=== PATIENT | female | born 1960 | race Caucasian/White ===

== ENCOUNTER 2016-05-15 12:48 | Observation (INO) ==
[2016-05-15 17:41] LABS: Basophils # 0.1 K/mcL (0.0-0.2); Basophils % 0.7 %; Eosinophils # 0.1 K/mcL (0.0-0.6); Hematocrit 43.3 % (35.3-44.9); Hemoglobin 14.6 g/dL (11.5-15.4); Immature Granulocytes % 0.4 % (0-4); Lymphocytes # 2.3 K/mcL (0.6-4.6); Lymphocytes % 32.9 %; Mean Corpuscular HGB Conc 33.7 g/dL (31.6-35.5); Mean Corpuscular Hemoglobin 30.3 pg (28.0-33.3); Mean Corpuscular Volume 89.8 fL (83.0-100.0); Mean Platelet Volume 9.5 fL (9.4-12.4); Monocytes # 0.6 K/mcL (0.0-1.3); Monocytes % 8.2 %; Platelet Count 290 K/mcL (140-400); Red Blood Count 4.82 M/mcL (3.82-4.97); Red Cell Distribution Width 12.4 % (11.5-14.5); Segmented Neutrophils % 56.8 %
--- NOTE | 2016-05-15 17:45 | Emergency Department Note ---
Disposition Clinical Impression: Near syncope Chest pain Qualifiers: Chest pain type: unspecified Qualified Code(s): R07.9 - Chest pain, unspecified Disposition: Admitted As Inpatient Condition: Good Referrals: Agata Jain CNP [Primary Care Provider] - Forms: ED Satisfaction Letter Time of Disposition: 17:46 Chest Pain HPI - General Chief Complaint: ED Chest Pain Stated Complaint: Feels like passing out/clammy Time Seen by Provider: 05/15/16 17:30 Source: patient Limitations: no limitations Vital Signs Reviewed: Yes Nursing Notes Reviewed: Yes - History of Present Illness HPI Narrative: 56-year-old female who comes to emergency Department complaining of a numb feeling across her chest with some pain and some pain up into her jaw has had 3 episodes today. Got lightheaded and felt like she is going to pass out earlier today. No cardiac history. She does have history of hypertension and a family history. 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 Onset: during rest Pain Location: substernal, left chest Severity scale (1-10): 0 Quality: heaviness Pain Radiation: neck, jaw/teeth Improves with: nothing Worsens with: nothing - Related Data Home Medications Medication Instructions Recorded Confirmed [place] 5-325 Tablet 05/24/15 05/24/15 Requip Xl 05/24/15 Zyrtec 05/24/15 Klonopin 01/24/16 Lasix 01/24/16 01/24/16 Lexapro 01/24/16 Previous Rx's Medication Instructions Recorded MethylPREDNISolone [Medrol] 4 mg PO DAILY 6 Days 05/24/15 Azithromycin [Zithromax] 250 mg PO DAILY #6 tablet 01/24/16 Benzonatate [Tessalon] 200 mg PO TID PRN #30 capsule 01/24/16 GuaiFENesin ER [Mucinex] 1,200 mg PO BID #20 tbbp.12hr 01/24/16 Doxycycline 100 mg PO BID #14 capsule 02/06/16 GuaiFENesin ER [Mucinex] 600 mg PO BID #20 tbbp.12hr 02/06/16 Promethazine/Phenyleph/Codeine 5 ml PO Q6H PRN #120 ml 02/06/16 [Promethazine Vc-Codeine Syrup] Allergies Allergy/AdvReac Type Severity Reaction Status Date / Time cefdinir [From Omnicef] Allergy Rash Verified 01/24/16 15:01 Erythromycin Base Allergy See Verified 01/24/16 15:01 Comments NSAIDS (Non-Steroidal Allergy See Verified 01/24/16 15:01 Anti-Inflamma Comments Penicillins [PCN] Allergy Rash Verified 01/24/16 15:01 pramipexole [From Mirapex] Allergy Muscle Pain Verified 01/24/16 15:01 ropinirole [From Requip] Allergy Vomiting Verified 01/24/16 15:01 Sulfa (Sulfonamide Allergy Rash Verified 01/24/16 15:01 Antibiotics) Tizanidine [From Zanaflex] Allergy Muscle Pain Verified 01/24/16 15:01 Constitutional: Denies: fever, chills, weakness, weight change Eyes: Denies: eye pain, eye discharge, vision change ENT ED: Denies: ear pain, throat pain, dental pain, hearing loss, epistaxis, congestion, dysphagia Cardiovascular: Reports: chest pain. Denies: palpitations, dyspnea on exertion , edema, syncope Respiratory: Denies: cough, dyspnea, wheezes, hemoptysis, stridor Gastrointestinal: Denies: abdominal pain, nausea, vomiting, diarrhea, constipation, hematemesis, melena, hematochezia Genitourinary: Denies: dysuria, frequency, hematuria, discharge Musculoskeletal: Denies: back pain, neck pain, arthralgia, myalgia Integumentary: Denies: rash, abrasion, lesions Neurological: Denies: headache, weakness, numbness, paresthesias, confusion, abnormal gait, vertigo Psychiatric: Denies: anxiety, depression, suicidal thoughts, homicidal thoughts , auditory hallucinations, visual hallucinations Endocrine: Denies: fatigue Hematological/Lymphatic: Denies: easy bleeding, easy bruising Allergic/Immunologic: Denies: facial swelling, urticaria Chest Pain PMH - Past Medical History Medical history: Reports: hypertension - Social History Smoking Status: Never smoker Alcohol use: Reports: none Drug use: Reports: none Physical Exam - General Limitations: no limitations General appearance: alert - Head Head exam: atraumatic, normocephalic, normal inspection - Eye Eye exam: Present: normal appearance, PERRL, EOMI - ENT ENT exam: normal exam, normal oropharynx, mucous membranes moist - Neck Neck exam: Present: normal inspection, full ROM, trachea midline - Chest Chest inspection: Present: normal inspection, symmetric chest wall rise - Respiratory Respiratory exam: Present: normal lung sounds bilaterally - Cardiovascular Cardiovascular exam: Present: regular rate, normal rhythm, normal heart sounds - Abdominal Exam Abdominal exam: Present: soft, Non-Tender. Absent: tenderness, distention, guarding, rebound, rigidity - Extremities Exam Extremities exam: Present: normal inspection, full ROM. Absent: tenderness, pedal edema - Expanded Lower Extremity Exam Neurovascular/Tendon exam: Absent: motor deficit, sensory deficit, tendon deficit Gait: observed and normal - Back Exam Back exam: Present: normal inspection, full ROM. Absent: tenderness - Neurological Exam Neurological exam: Present: alert, oriented X3 - Psychiatric Psychiatric exam: Present: normal affect, normal mood - Skin Skin exam: Present: warm, dry, intact, normal color Course - Reevaluation(s) Reevaluation #1: Patient comes in with intermittent chest pain into her jaw. Had a near syncopal episode. Patient is not tachycardic. Time: 17:47 Vital Signs Temperature 98.3 F 05/15/16 13:56 Pulse Rate 75 05/15/16 13:56 Respiratory Rate 16 05/15/16 13:56 Blood Pressure 138/86 05/15/16 13:56 O2 Sat by Pulse Oximetry 94 L 05/15/16 13:56 Temperature 98.3 F 05/15/16 13:56 Pulse Rate 71 05/15/16 17:36 Respiratory Rate 12 05/15/16 17:36 Blood Pressure 132/96 05/15/16 17:36 O2 Sat by Pulse Oximetry 98 05/15/16 17:36 Oxygen Delivery Oxygen Delivery Room Air Chest Pain - Lab Data Lab results reviewed: Yes I reviewed the patient's lab results. Result diagrams: 05/15/16 17:33 05/15/16 17:33 Lab Results 05/15/16 05/15/16 05/15/16 Range/Units 17:33 17:33 17:33 WBC 7.1 (4.3-11.1) K/mcL RBC 4.82 (3.82-4.97) M/mcL Hgb 14.6 (11.5-15.4) g/dL Hct 43.3 (35.3-44.9) % MCV 89.8 (83.0-100.0) fL MCH 30.3 (28.0-33.3) pg MCHC 33.7 (31.6-35.5) g/dL RDW 12.4 (11.5-14.5) % Plt Count 290 (140-400) K/mcL MPV 9.5 (9.4-12.4) fL Immature Gran % 0.4 (0-4) % Seg Neutrophils % 56.8 % Lymphocytes % 32.9 % Monocytes % 8.2 % Eosinophils % 1.0 % Basophils % 0.7 % Neutrophils # 4.0 (1.6-8.9) K/mcL Lymphocytes # 2.3 (0.6-4.6) K/mcL Monocytes # 0.6 (0.0-1.3) K/mcL Eosinophils # 0.1 (0.0-0.6) K/mcL Basophils # 0.1 (0.0-0.2) K/mcL Sodium 140 (136-145) mEq/L Potassium 3.5 (3.5-4.5) mEq/L Chloride 105 (98-109) mEq/L Carbon Dioxide 24 (19-29) mEq/L BUN 20 (7-20) mg/dL Creatinine 0.84 (0.57-1.11) mg/dL Est GFR ( Amer) > 60 (> 60) Est GFR (Non-Af Amer) > 60 (> 60) BUN/Creatinine Ratio 24 (6-26) Glucose 94 (70-99) mg/dL Calculated Osmolality 292 (280-300) Calcium 8.9 (8.6-10.8) mg/dL Troponin I 0.00 (0-0.03) ng/mL - Radiology Data Radiology results reviewed: Yes I reviewed the patient's radiology results. Chest X-Ray 05/15/16 14:10 IMPRESSION: No acute process. D/ / Po Quan MD / Po Quan MD Interpreting Provider: oP Quan MD - EKG Data EKG attestation: Yes I reviewed and interpreted this EKG. EKG shows normal: sinus rhythm Rate: normal Rhythm: NSR Interpretation: no acute changes Heart Score - Score History: Moderately Suspicious EKG: Normal Age: 45-65 Risk Factors: 1-2 risk factors Troponin: Less than normal limit HEART Score Total: 3
[2016-05-15 17:51] LABS: BUN/Creatinine Ratio 24 (6-26); Blood Urea Nitrogen 20 mg/dL (7-20); Calcium 8.9 mg/dL (8.6-10.8); Carbon Dioxide 24 mEq/L (19-29); Chloride 105 mEq/L (98-109); Glucose 94 mg/dL (70-99); Osmolality,Calculated 292 (280-300); Potassium 3.5 mEq/L (3.5-4.5); Sodium 140 mEq/L (136-145); eGFR For African Americans > 60 (> 60); eGFR For Non-African Americans > 60 (> 60)
[2016-05-15 17:58] LABS: Prothrombin Time 11.2 Seconds (9.4-12.1)
[2016-05-15 18:01] LABS: Activated Partial Thrombo Time 27.4 Seconds (26.0-36.0)
[2016-05-15] MEDS ORDERED: *HR* HYDROcodone/Acet 5/325 mg TABLET PO PRN (21:39)
[2016-05-15] MEDS ORDERED: Ondansetron 4 MG/2 ML VIAL IVP PRN (21:39)
[2016-05-15] MEDS ORDERED: Acetaminophen 325 MG TABLET PO PRN (21:39)
[2016-05-15] MEDS ORDERED: Naloxone 0.4 MG/ML INJ IVP PRN (21:39)
--- NOTE | 2016-05-15 21:45 | Internal Med History&Physical ---
Date of Encounter: 05/15/16 Time of Encounter: 21:45 Assessment and Plan (1) Chest pain Current visit: Yes Status: Acute 1 she had sudden onset of chest pain today. Across her chest up into her jaw into her teeth she did experience so states symptoms of nausea diaphoresis and lightheadedness. Per second cardiac troponins are negative we will continue to cycle cardiac troponin 2 continuous cardiac monitoring 3 she has a history of gastric bypass does not take NSAIDS will give a one-time dose of enteric-coated 81 mg baby aspirin 4 we will make patient nothing by mouth after midnight cardiac stress test in the a.m. Qualifiers: Chest pain type: unspecified Qualified Code(s): R07.9 - Chest pain, unspecified (2) HTN (hypertension) Current visit: Yes Status: Acute 1 presently controlled we will continue with home medications Qualifiers: Hypertension type: essential hypertension Qualified Code(s): I10 - Essential (primary) hypertension (3) DVT prophylaxis Current visit: Yes Status: Acute 1 [facility] Internal Medicine - H&P: HPI Chief complaint: CP Admitted From: Emergency Dept Plans for Post Hospital Care: Home History of present illness: Ms. Triana is a 56 year old female past history of hypertension. 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 She complained of nausea diaphoresis as well as lightheadedness. There were no aggravating factors, however the pain was relieved with rest She states that she has been under some personal stress, was recently started on Ambien for insomnia. She presented to the ER the above complaints. in the ED her first set of cardiac enzymes are negative , EKG with no ST-T wave abnormalities noted. She has been admitted for further workup and evaluation. Presently the patient denies any chest pain or shortness of breath, she is hemodynamically stable at this time. I reveiwed this case with DR Arauz Past Med Surg Social Fam HX - Past Medical History Medical history: hypertension - Social History Smoking Status: Never smoker Smokeless Tobacco Status: No Alcohol use: none Drug use: none - Family History Maternal Grandfather Hx Family Cardiac Disorders: Yes (pig valve replacement, triple bypass) Internal Medicine - H&P: Meds Albuterol Sulfate [Proair Hfa] 2 puff IH Q4H PRN 05/15/16 [History] Alendronate Sodium [Fosamax] 70 mg PO MO 05/15/16 [History] Baclofen [Lioresal] 5 mg PO QAM 05/15/16 [History] Baclofen [Lioresal] 10 mg PO HS 05/15/16 [History] Cetirizine HCl [Zyrtec] 10 mg PO DAILY 05/15/16 [History] Docusate [Colace] 100 mg PO DAILY PRN 05/15/16 [History] FLUoxetine HCl [PROzac] 20 mg PO QAM 05/15/16 [History] Furosemide [Lasix] 20 mg PO DAILY PRN 05/15/16 [History] Lisinopril/Hydrochlorothiazide [Zestoretic 20-12.5 mg Tablet] 1 each PO DAILY [History] Zolpidem [Ambien] 5 mg PO HS 05/15/16 [History] Allergies cefdinir [From Omnicef] Allergy (Verified 01/24/16 15:01) Rash Erythromycin Base Allergy (Verified 01/24/16 15:01) See Comments NSAIDS (Non-Steroidal Anti-Inflamma Allergy (Verified 01/24/16 15:01) See Comments Penicillins [PCN] Allergy (Verified 01/24/16 15:01) Rash pramipexole [From Mirapex] Allergy (Verified 01/24/16 15:01) Muscle Pain ropinirole [From Requip] Allergy (Verified 01/24/16 15:01) Vomiting Sulfa (Sulfonamide Antibiotics) Allergy (Verified 01/24/16 15:01) Rash Tizanidine [From Zanaflex] Allergy (Verified 01/24/16 15:01) Muscle Pain All Systems PM: A 10-system review of systems was performed and is negative for pertinent findings except as documented above in the HPI. - Constitutional Constitutional: no chills, no fever(s), no night sweats - EENT Eyes: no change in vision, no discharge, no pain, no photophobia - Cardiovascular Cardiovascular ROS IM: chest pain - Respiratory Respiratory: no cough, no dyspnea, no wheezing, no excessive phlegm production - Gastrointestinal Gastrointestinal: no abdominal pain, no diarrhea, no hematemesis, no hematochezia, no melena, no nausea, no vomiting - Genitourinary Genitourinary: no change in urinary stream, no dysuria, no flank pain, no hematuria - Musculoskeletal Musculoskeletal ROS IM: muscle cramps - Neurological Neurological ROS: no confusion, no convulsions, no focal weakness, no numbness, no tingling, no tremor(s) - Constitutional Vitals: Temp Pulse Resp BP Pulse Ox 97.8 F 68 14 120/60 94 L 05/15/16 18:59 05/15/16 18:59 05/15/16 18:59 05/15/16 18:59 05/15/16 18:59 General appearance: Present: A&O X 3, obese - Head Head exam: Present: atraumatic, normocephalic - Eye Eye exam: Present: PERRL, conjuntiva pink, sclera anicteric Pupils: Present: PERRL - Neck Neck exam general surgery: Present: supple, trachea midline. Absent: lymphadenopathy - Respiratory Respiratory exam: Present: CTAB. Absent: accessory muscle use, rales, rhonchi, wheezes - GI/Abdominal GI/Abdominal exam: Present: normal bowel sounds, soft, no peritoneal signs. Absent: distended, tenderness - Extremities Exam Extremities exam: Present: warm, radial pulses palpable and symetrical. Absent : calf tenderness, cyanotic, pedal edema - Neurological Exam Neurological exam: Present: CN II-XII intact, oriented X3, no focal deficits. Absent: pronater drift, facial droop, speech deficit Internal Med - H&P Results - Labs CBC & Chem 7: 05/15/16 17:33 05/15/16 17:33 - EKG Data EKG shows normal: sinus rhythm Rate: normal - EKG Data Interpretation IM: normal EKG - Diagnostic Studies Chest x-ray Additional comments: Radiology read no acute process
[2016-05-15] MEDS ORDERED: Aspirin Enteric Coated 81 MG Tablet PO ONE (22:41)
--- NOTE | 2016-05-15 23:18 | Event Note ---
Date of Encounter: 05/15/16 Time of Encounter: 23:16 Patient seen and examined withpetitioner. Patient had an episode of chest discomfort nausea lightheadedness sweating but lasted for approximately 5 minutes. She will be admitted under observation status for serial cardiac markers. Vasovagal episode as possible. She was also on the lots of stress recently with insomnia she has been started on Ambien 5 mg daily which I advised her to discontinue. Electrocardiogram shows no ST segment shifts. Initial troponin normal. We will also check the dimer and if elevated PE will be ruled out. A stress test has been ordered for the morning showed her cardiac markers remain normal.
[2016-05-16] MEDS ORDERED: rOPINIRole 0.25 MG TABLET PO ONE ×2 (01:57→21:36)
[2016-05-16] MEDS: *HR* Enoxaparin 40 MG/0.4 ML SYRINGE SQ SCH (06:19)
[2016-05-16] MEDS ORDERED: Regadenoson 0.4 MG/5 ML SYRINGE IVP ONE (06:28)
[2016-05-16 07:26] LABS: Basophils % 1.1 %; Eosinophils % 3.4 %; Hematocrit 40.2 % (35.3-44.9); Hemoglobin 13.5 g/dL (11.5-15.4); Immature Granulocytes % 0.6 % (0-4); Lymphocytes % 34.5 %; Mean Corpuscular HGB Conc 33.6 g/dL (31.6-35.5); Mean Corpuscular Volume 92.2 fL (83.0-100.0); Mean Platelet Volume 9.8 fL (9.4-12.4); Monocytes % 11.6 %; Platelet Count 247 K/mcL (140-400); Red Blood Count 4.36 M/mcL (3.82-4.97); Red Cell Distribution Width 12.4 % (11.5-14.5); Segmented Neutrophils % 48.8 %
[2016-05-16 07:27] LABS: Basophils # 0.1 K/mcL (0.0-0.2); Eosinophils # 0.2 K/mcL (0.0-0.6); Lymphocytes # 1.8 K/mcL (0.6-4.6); Monocytes # 0.6 K/mcL (0.0-1.3); Neutrophils # 2.6 K/mcL (1.6-8.9)
[2016-05-16 07:29] LABS: BUN/Creatinine Ratio 24 (6-26); Blood Urea Nitrogen 20 mg/dL (7-20); Calcium 8.7 mg/dL (8.6-10.8); Carbon Dioxide 27 mEq/L (19-29); Chloride 103 mEq/L (98-109); Chol/HDL Ratio 3.6 (0-4.9); Cholesterol 169 mg/dL (< 200); Glucose 97 mg/dL (70-99); HDL Cholesterol 47 mg/dL (40-59); LDL Cholesterol,Calculated 95 mg/dL (0-99); Osmolality,Calculated 291 (280-300); Potassium 3.5 mEq/L (3.5-4.5); Sodium 139 mEq/L (136-145); Triglycerides 137 mg/dL (< 150); eGFR For African Americans > 60 (> 60); eGFR For Non-African Americans > 60 (> 60)
[2016-05-16] MEDS: Lisinopril-HCTZ 20-12.5mg TABLET PO SCH (09:56)
[2016-05-16] MEDS: FLUoxetine 20 MG CAPSULE PO SCH (09:56)
[2016-05-16] MEDS: Loratadine 10 MG TABLET PO SCH (09:57)
--- NOTE | 2016-05-16 13:50 | Internal Med Progress Note ---
Date of Encounter: 05/16/16 Time of Encounter: 12:30 - Assessment and plan (1) Chest pain Current Visit: Yes Status: Acute Assessment and plan: Patient currently denies chest pain or shortness of breath. Chest x-ray negative. Echocardiogram still pending. 2 day stress test in progress. Troponins negative 3. We will monitor her overnight and if stress test negative tomorrow, likely discharge. ITS Impressions Chest X-Ray 05/15/16 14:10 IMPRESSION: No acute process. D/ / Po Quan MD / Po Quan MD Interpreting Provider: Po Quan MD (2) DVT prophylaxis Current Visit: Yes Status: Acute Assessment and plan: Subcutaneous Lovenox (3) HTN (hypertension) Current Visit: Yes Status: Chronic Assessment and plan: Controlled. At home, she is on lisinopril/HCTZ 20-12.5, furosemide 20 mg daily as needed. Lisinopril/HCTZ has been continued, no indication for furosemide at this point. She is euvolemic on examination. (4) Morbid obesity with BMI of 40.0-44.9, adult Current Visit: Yes Status: Chronic - Subjective Interval history: Patient seen and examined. On examination, patient sitting upright in her bed eating lunch. Patient denies pain or shortness of breath. - Constitutional Vitals: Temp Pulse Resp BP Pulse Ox 97.6 F 62 20 108/70 95 05/16/16 12:05 05/16/16 12:05 05/16/16 12:05 05/16/16 12:05 05/16/16 12:05 General appearance: Present: A&O X 3, morbidly obese, pleasant, no acute distress, answers questions appropriately - Head Head exam: Present: atraumatic, normocephalic - Eye Eye exam: Present: PERRL, conjuntiva pink, sclera anicteric Pupils: Present: PERRL - Neck Neck exam general surgery: Present: supple, trachea midline. Absent: lymphadenopathy - Respiratory Respiratory exam: Present: CTAB. Absent: accessory muscle use, decreased breath sounds, rales, respiratory distress, rhonchi, wheezes - Cardiovascular Cardiovascular exam: Present: RRR, +S1, +S2. Absent: diastolic murmur, gallop, rubs, systolic murmur - GI/Abdominal GI/Abdominal exam: Present: normal bowel sounds, soft, no peritoneal signs. Absent: distended, tenderness - Extremities Exam Extremities exam: Present: warm, radial pulses palpable and symetrical. Absent : calf tenderness, cyanotic, pedal edema - Neurological Exam Neurological exam: Present: alert, CN II-XII intact, normal gait, oriented X3, no focal deficits, strengths equal and symetr throughout. Absent: pronater drift, facial droop, speech deficit - Skin Skin exam: Present: dry, intact, normal color, warm Internal Medicine: Result - Labs CBC & Chem 7: 05/16/16 06:43 05/16/16 06:43 Labs: Short CBC 05/16/16 Range/Units 06:43 WBC 5.3 (4.3-11.1) K/mcL Hgb 13.5 (11.5-15.4) g/dL Hct 40.2 (35.3-44.9) % Plt Count 247 (140-400) K/mcL Neutrophils # 2.6 (1.6-8.9) K/mcL BMP 05/16/16 06:43 Sodium 139 Potassium 3.5 Chloride 103 Carbon Dioxide 27 BUN 20 Creatinine 0.83 Glucose 97 Calcium 8.7 Cardiac Enzymes 05/15/16 05/16/16 Range/Units 23:02 06:43 Troponin I 0.00 0.00 (0-0.03) ng/mL - ABG Interpretation ABG results: PT/INR, D-dimer PT 11.2 Seconds (9.4-12.1) 05/15/16 17:33 D-Dimer 380 ng/mLFEU (0-500) 05/15/16 23:02 Consult Discharge Plan - Plan Referrals: Agata Jain CNP [Primary Care Provider] -
[2016-05-17] MEDS: *HR* Enoxaparin 40 MG/0.4 ML SYRINGE SQ SCH (08:14)
[2016-05-17] MEDS: Loratadine 10 MG TABLET PO SCH (08:17)
[2016-05-17] MEDS: Lisinopril-HCTZ 20-12.5mg TABLET PO SCH (08:17)
[2016-05-17] MEDS: FLUoxetine 20 MG CAPSULE PO SCH (08:17)
--- NOTE | 2016-05-17 08:22 | ECHO - Doppler Report ---
Echocardiogram Name: Elisabeth Triana Date of Study: 05/16/2016 Date: 1960 Ht: 64.0 in Medical Record#: [id number] Age: 56 Wt: 240.0 lb Gender: Female BSA: 2.11 Order #: [id number] Location: [facility] Room #: [id number] Reading Physician: Po Gould MD, [facility] Financial Sales Advisor: Jodie Ferguson Ordering Physician: Genia Ramachandran CNP Primary Physician: Agata Jain CNP Indications: Chest pain Impressions: Normal LV systolic function, LVEF 65-70%. No significant valvular dysfunction. Unable to estimate RVSP due to lack of TR jet. Left Ventricular Wall Motion: Rest Echo Findings All wall segments showed normal motion. Findings: Study Quality * Technically adequate exam. ECG Findings * Normal sinus rhythm. Left Ventricle * Normal LV systolic function, LVEF 65-70%. * Normal LV chamber size and wall thickness. * Normal left ventricular diastolic function. Right Ventricle * Normal right ventricular size and function. Left Atrium * Normal left atrial size. Right Atrium * Normal right atrial size. Aorta * Normally sized aortic root. Pericardium * There is no pericardial effusion present. IVC * The IVC is not dilated. Aortic Valve * Trileaflet aortic valve with normal function. Mitral Valve * Normal mitral valve structure and function. Tricuspid Valve * Normal tricuspid valve structure and function. * Unable to estimate RVSP due to lack of TR jet. Pulmonic Valve * Pulmonic valve not well visualized. * Normal pulmonic valve function. History Hypertension Family History of CAD Measurements: BP: 109/ 74 2D Normal Values RVIDd: 3.20 cm IVSd: 1.00 cm 0.6 - 1.0 cm LVIDd: 4.00 cm 3.7 - 5.6 cm LVPWd: 1.00 cm 0.6 - 1.1 cm LVIDs: 2.30 cm 1.5 - 3.6 cm AO: 2.70 cm < 4.0 cm %FS: 42.50 cm >25 % LA volume: 51 Mitral Valve Peak E:.81 m/sec Peak A:.81 m/sec E/A Ratio:1 Updated by Po Golud MD, [facility] on 05/17/2016 8:16:56 AM electronically signed on 05/17/2016 8:17:19 AM with status of Final Wall Motion Hernandez: 1=Normal, 2=Hypokinesis, 3=Akinesis, 4=Dyskinesis, 5=Aneurysmal, 6=Hyperkinetic, X=Not Visualized (Blank)=Missing
--- NOTE | 2016-05-17 09:58 | Nuclear Medicine Stress Report ---
Regadenoson Nuclear 2 day Name: Elisabeth Triana Date of Study: 05/16/2016 Date: 1960 Ht: 64.0 in Medical Record#: [id number] Age: 56 Wt: 241.0 lb Gender: Female Order #: [id number] Location: [facility] Room: [facility] Supervising Provider: Diogenes Mcconnell CNP Reading Physician: Po Gould MD, [facility] Ordering Physician: Jessy Owens CNP Primary Care Physician: [facility] Stress Technologist: Thom Alvarado, AGENCY SALES REPRESENTATIVE, CCT Textile Artist: Quintin Blanco Indications: Chest Pain Impression: Baseline elevated blood pressure (156/98). Normal hemodynamic responses to regadenoson. Non-specific ST-T wave changes were noted with regadenoson. No ECG changes diagnostic of ischemia. Gated LVEF > 70%. Perfusion imaging was negative for ischemia or infarct. History: Hypertension Stress Test Summary: Stress Test Type: Pharmacologic Regadenoson 0.4mg/5ml given IV Baseline Information: Initial Heart Rate: 72 Blood Pressure: 156/98 Stress Information: Test Terminated Due to (primary): Completed Protocol Maximum Blood Pressure: 180/100 Maximum Heart Rate: 120 Percent Maximum Heart Rate Achieved: 74 Double Product: 21,600 Symptoms: C/o feeling hot,tingly Nuclear Summary: SPECT myocardial perfusion imaging using Tc99m Sestamibi given intravenously was performed at rest and following cardiac stress testing. The resting images were obtained following initial dose of 34.7 mCi. Following stress an additional dose of 32 mCi was given at peak exercise or 30 seconds post regadenoson infusion. Findings: Stress Note * Resting ECG demonstrated normal sinus rhythm. * No baseline arrhythmias were noted. * Patient had no chest pain during stress. * No arrhythmias were noted during stress. * Non-specific ST-T wave changes were noted with regadenoson. No ECG changes diagnostic of ischemia. Hemodynamic responses * Baseline elevated blood pressure (156/98). Normal hemodynamic responses to regadenoson. Study Quality * Study quality is average. Gated EF > 70% * Gated LVEF > 70%. Left Ventricle * The left ventricle is not dilated. * Normal Segmental Perfusion in rest. * Normal segmental perfusion in stress. TID * No evidence of transient ischemic dilatation. Updated by Po Gould MD, [facility] on 05/17/2016 9:53:56 AM electronically signed on 05/17/2016 9:54:21 AM with status of Final
[2016-05-17 11:50] VITALS: BP 121/79
--- NOTE | 2016-05-17 15:18 | Discharge Summary ---
Date of Encounter: 05/17/16 Time of Encounter: 14:00 - Discharge Diagnosis (1) Chest pain Priority: Primary Status: Resolved Comments: patient denied chest pain on day of discharge. Chest x-ray negative. 2 Park stress test negative. Echocardiogram unremarkable with ejection fraction 65-70% . Acute coronary syndrome ruled out. Patient endorsing increased stress at home. (2) Anxiety in acute stress reaction Priority: Primary Status: Suspected Comments: suspected manifested as chest pain. (3) DVT prophylaxis Priority: Primary Status: Acute Comments: Subcutaneous Lovenox while admitted (4) HTN (hypertension) Priority: Secondary Status: Chronic Comments: Controlled. At home, she is on lisinopril/HCTZ 20-12.5, furosemide 20 mg daily as needed. (5) Morbid obesity with BMI of 40.0-44.9, adult Priority: Secondary Status: Chronic - Discharge Medications Prescriptions: Ropinirole HCl [Requip Xl] 4 mg PO HS #30 tab.er.24h Home Medications: Albuterol Sulfate [Proair Hfa] 2 puff IH Q4H PRN 05/15/16 [History] Alendronate Sodium [Fosamax] 70 mg PO MO 05/15/16 [History] Baclofen [Lioresal] 5 mg PO QAM 05/15/16 [History] Baclofen [Lioresal] 10 mg PO HS 05/15/16 [History] Cetirizine HCl [Zyrtec] 10 mg PO DAILY 05/15/16 [History] Docusate [Colace] 100 mg PO DAILY PRN 05/15/16 [History] FLUoxetine HCl [Prozac] 20 mg PO QAM 05/15/16 [History] Furosemide [Lasix] 20 mg PO DAILY PRN 05/15/16 [History] Lisinopril/Hydrochlorothiazide [Zestoretic 20-12.5 mg Tablet] 1 each PO DAILY [History] Zolpidem [Ambien] 5 mg PO HS 05/15/16 [History] Ropinirole HCl [Requip Xl] 4 mg PO HS #30 tab.er.24h 05/17/16 [Rx] Allergies/Adverse Reactions: Allergies cefdinir [From Omnicef] Allergy (Verified 01/24/16 15:01) Rash Erythromycin Base Allergy (Verified 11/15/16 15:01) See Comments NSAIDS (Non-Steroidal Anti-Inflamma Allergy (Verified 01/24/16 15:01) See Comments Penicillins [PCN] Allergy (Verified 01/24/16 15:01) Rash pramipexole [From Mirapex] Allergy (Verified 01/24/16 15:01) Muscle Pain ropinirole [From Requip] Allergy (Verified 01/24/16 15:01) Vomiting Sulfa (Sulfonamide Antibiotics) Allergy (Verified 01/24/16 15:) Rash Tizanidine [From Zanaflex] Allergy (Verified 01/24/16 15:01) Muscle Pain Procedures/tests Complete & Pending: Procedures Performed prior 72 hours Category Date Time Status NM priscilla perf SPECT multi [NM] Routine Exams 05/15/16 22:10 Taken EV echocardiogram Routine Y 05/16/16 22:43 Completed SP pharm nuclear stress Routine Y 05/16/16 07:55 Completed Date of admission: 05/15/16 18:05 Primary care physician: Agata Jain CNP Discharging clinician: Jessy Owens Anticipated date of discharge: 05/17/16 - Patient Status Disposition: Home, Self-Care Condition: Good Functional capacity at discharge: independent ambulation Overall status at discharge: patient is back to baseline - Discharge Instructions Follow Up With: Agata Jain CNP [Primary Care Provider] - 05/24/16 10:40 am Additional Instructions: Follow-up with primary care provider as scheduled - Diet and Activity Activity: increase activity as tolerated Diet: low fat, low cholesterol, low salt diet Hospital course: Ms. Triana is a 56 year old female with past medical history of hypertension and morbid obesity. 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 Associated symptoms include nausea, diaphoresis, lightheadedness. Patient stating the pain was relieved with rest. Patient stating she has had increased personal stressors and was recently started on Ambien for insomnia. Workup in the emergency department unremarkable. Chest x-ray negative. Patient was admitted to the hospitalist service for further evaluation and management. Troponins negative 3. Echocardiogram unremarkable with ejection fraction of 65-70%. Patient had a 2 day nuclear stress test that was negative for ischemia or infarct. Acute coronary syndrome ruled out. In further discussion with the patient, she has had increased stressors in her life as well as increased insomnia. In review of her chart in [facility], her primary care provider is currently adjusting her medications to help with her insomnia. Patient asked me to write for clonazepam for her insomnia however her primary care provider has already stated that she would not be placing the patient on a benzo for insomnia. I would not write this medication at this time. Patient also requesting apparent all extended release for her restless legs. She states that her insurance does not cover this and that a prior auth is needed, I did write for ropirinol 4 mg extended release, we will perform a prior auth if required. Patient denied chest pain or shortness of breath throughout this admission. She was discharged home in stable condition with close outpatient follow-up recommended. Of note, she has a documented allergy of ropirinol with vomiting however she states that she tolerates the XR formulation just fine. ITS Impressions Chest X-Ray 05/15/16 14:10 IMPRESSION: No acute process. D/ / Po Quan MD / Po Quan MD Interpreting Provider: Po Qaun MD Echocardiogram impressions: Normal LV systolic function, LVEF 65-70%. No significant valvular dysfunction. Unable to make RVSP due to lack of TR jet. 2 day nuclear stress test impression: Baseline elevated blood pressure (156/98) . Normal hemodynamic response is to Regadenoson. Nonspecific ST-T wave changes were noted with Regadenoson. No ECG changes diagnostic of ischemia. Gaited ejection fraction is greater than 70%. Perfusion imaging was negative for ischemia or infarct. - Time Spent with Patient Total time spent providing and/or coordinating discharge services: - Constitutional Vitals: Temp Pulse Resp BP Pulse Ox 98.5 F 80 17 121/79 91 L 05/17/16 11:49 05/17/16 11:49 05/17/16 11:49 05/17/16 11:49 05/17/16 11:49 General appearance: Present: A&O X 3, morbidly obese, pleasant, no acute distress, answers questions appropriately - Head Head exam: Present: atraumatic, normocephalic - Eye Eye exam: Present: PERRL, conjuntiva pink, sclera anicteric Pupils: Present: PERRL - Neck Neck exam general surgery: Present: supple, trachea midline. Absent: lymphadenopathy - Respiratory Respiratory exam: Present: CTAB. Absent: accessory muscle use, rales, respiratory distress, rhonchi, wheezes - Cardiovascular Cardiovascular exam: Present: RRR, +S1, +S2. Absent: diastolic murmur, gallop, rubs, systolic murmur - GI/Abdominal GI/Abdominal exam: Present: normal bowel sounds, soft, no peritoneal signs. Absent: distended, tenderness - Extremities Exam Extremities exam: Present: warm, radial pulses palpable and symetrical. Absent : calf tenderness, cyanotic, pedal edema - Neurological Exam Neurological exam: Present: alert, CN II-XII intact, normal gait, oriented X3, no focal deficits, strengths equal and symetr throughout. Absent: pronater drift, facial droop, speech deficit - Skin Skin exam: Present: dry, intact, normal color, warm
== END 2016-05-17 16:28 | disposition home or self-care (01) ==
LOC: 3BNU 12:48 → EMEROO 12:48 → 3BNU 18:32
PROVIDERS: ADMIT Nurse Practitioner Acute Care; ATTEND Nurse Practitioner Family